=== PATIENT | female | born 1975 | race Caucasian/White ===

== ENCOUNTER 2024-07-06 09:31 | Outpatient (CLI) | payer BC | END 2024-07-06 09:32 | disposition home or self-care (01) | LOC: BICMRI 09:31 | PROVIDERS: ATTEND Student in an Organized Health Care Education/Training Program | DX: Z12.39 Encounter for other screening for malignant neoplasm of breast (principal); R92.30 Dense breasts, unspecified; N64.4 Mastodynia; N64.89 Other specified disorders of breast; N64.59 Other signs and symptoms in breast | CPT/HCPCS: A9577; C8908 ==